=== PATIENT | female | born 1950 | race Caucasian/White ===

== ENCOUNTER 2023-04-30 12:12 | Observation (INO) ==
[2023-04-30 12:38] LABS: ABS Eosinophils 0.2 10^3/uL (0.0-0.5); ABS Lymphocytes 1.1 10^3/uL (1.0-4.8); ABS Monocytes 0.6 10^3/uL (0.0-0.9); ABS Neutrophils 4.1 10^3/uL (1.5-7.6); Eosinophil % 4.1 %; Hematocrit 38.2 % (35-45); Hemoglobin 13.1 g/dL (11.5-14.3); Lymphocyte % 17.9 %; Mean Corpuscular Hemoglobin 31.3 pg (27-33); Mean Corpuscular Hgb Conc 34.3 g/dL (31-36); Mean Corpuscular Volume 91.3 fL (80-97); Mean Platelet Volume 8.5 fL (7.5-11.2); Nucleated Red Blood Cells % 0.1 %/100WBC (0.0-0.8); Platelet Count 282 10^3/uL (150-450); Red Blood Count 4.18 10^6/uL (3.63-4.92); Red Cell Distribution Width 13.4 % (12-17)
[2023-04-30 13:08] LABS: INR 1.13 (0.83-1.13)
[2023-04-30] MEDS ORDERED: Lactated Ringers 1000 ml BAG 1,000 ML IV ONE (13:42)
[2023-04-30 13:52] LABS: Albumin 4.2 g/dL (3.2-5.2); Albumin/Globulin Ratio 1.6 (1-3); Calcium 9.3 mg/dL (8.6-10.3); Creatinine, Serum 0.72 mg/dL (0.51-0.95); Globulin 2.6 g/dL (2-4); Potassium 4.2 mmol/L (3.5-5.0); Total Bilirubin 0.8 mg/dL (0.2-1.0); Total Protein 6.8 g/dL (6.4-8.9); eGFR CKD-EPI 89.3 (>60)
[2023-04-30 13:57] LABS: High Sensitivity Troponin 1 Hr 9 pg/mL (<15)
[2023-04-30] MEDS ORDERED: Digoxin IV 0.5 MG/2 ML AMP (0.25 MG/ML) IV SLOW PU ONE (15:36)
[2023-04-30] MEDS: dilTIAZem 30 MG TAB PO ONE ×2 (15:43→15:51)
[2023-04-30] MEDS ORDERED: Digoxin IV 0.5 MG/2 ML AMP (0.25 MG/ML) ONE (16:00)
[2023-04-30] MEDS ORDERED: Lactated Ringers 1000 ml BAG 500 ML IV ONE (19:21)
[2023-05-01] MEDS ORDERED: Metoprolol Tartrate 5 mg VIAL 5 ml VIAL (1 mg/ml) IV PRN (03:32)
[2023-05-01 08:41] LABS: Creatinine, Serum 0.64 mg/dL (0.51-0.95); Magnesium 2.1 mg/dL (1.9-2.7); Potassium 4.4 mmol/L (3.5-5.0); eGFR CKD-EPI 94.4 (>60)
[2023-05-01] MEDS: CMCS:Letrozole 2.5 MG TAB (NF) PO SCH (11:49)
[2023-05-02] MEDS ORDERED: Midazolam 5 mg/5 ml VIAL 1 mg/ml 5 ml VIAL (5 mg) ONE (07:40)
[2023-05-02] MEDS ORDERED: fentaNYL 100 mcg/2 ml 50 MCG/ML VIAL ONE (07:41)
[2023-05-02] MEDS ORDERED: Flumazenil 0.5 mg/5 ml 0.1 MG/ML 5 ml VIAL ONE (07:41)
[2023-05-02] MEDS ORDERED: Naloxone 0.4 mg VIAL 0.4 mg/ml 1 ml VIAL ONE (07:41)
[2023-05-02] MEDS ORDERED: Lactated Ringers 1000 ml BAG 1,000 ML IV SCH (11:00)
[2023-05-02] MEDS: CMCS:Letrozole 2.5 MG TAB (NF) PO SCH (11:48)
[2023-05-02 15:05] VITALS: BP 112/76
== END 2023-05-02 18:00 | disposition home or self-care (01) ==
LOC: ED 12:12 → EDHOLD 05-01 00:43 → INTOOBSV 05-01 00:43 → MEDTELE 05-01 03:32
PROVIDERS: ADMIT Internal Medicine; ATTEND Internal Medicine

== ENCOUNTER 2024-04-11 14:44 | Observation (INO) ==
[2024-04-11] MEDS: Iodixanol 320 (CONTRAST) 100 ML SDV IV ONE (15:06)
[2024-04-11 15:09] LABS: ABS Eosinophils 0.2 10^3/uL (0.0-0.5); ABS Lymphocytes 1.2 10^3/uL (1.0-4.8); ABS Monocytes 0.6 10^3/uL (0.0-0.9); ABS Neutrophils 4.9 10^3/uL (1.5-7.6); Eosinophil % 2.9 %; Hematocrit 42.5 % (35-45); Hemoglobin 14.6 g/dL (11.5-14.3); Lymphocyte % 17.4 %; Mean Corpuscular Hemoglobin 31.1 pg (27-33); Mean Corpuscular Hgb Conc 34.3 g/dL (31-36); Mean Corpuscular Volume 90.5 fL (80-97); Mean Platelet Volume 8.2 fL (7.5-11.2); Nucleated Red Blood Cells % 0.1 %/100WBC (0.0-0.8); Platelet Count 285 10^3/uL (150-450); Red Cell Distribution Width 13.1 % (12-17)
[2024-04-11 15:20] LABS: Activated Partial Thrombo Time 32.7 seconds (26.0-38.0); INR 1.04 (0.85-1.14)
[2024-04-11 15:59] LABS: Albumin 4.4 g/dL (3.2-5.2); Albumin/Globulin Ratio 1.5 (1-3); Calcium 9.4 mg/dL (8.6-10.3); Creatinine, Serum 0.6 mg/dL (0.51-0.95); Direct Bilirubin 0.1 mg/dL (0.03-0.18); Globulin 2.9 g/dL (2-4); HDL Cholesterol 50.6 mg/dL; Indirect Bilirubin 0.5 mg/dL (0.3-1.0); Potassium 4.6 mmol/L (3.5-5.0); Total Bilirubin 0.6 mg/dL (0.2-1.0); Total Protein 7.3 g/dL (6.4-8.9); eGFR CKD-EPI 95.3 (>60)
[2024-04-11] MEDS ORDERED: Al Hydrox/Mg Hydrox/Simet LIQ 30 ML UDC PO PRN (16:14)
[2024-04-11] MEDS ORDERED: Sulfur Hexaflouride MICROSPHR 25 MG VIAL IV PRN (16:18)
[2024-04-11 18:41] LABS: Urine Appearance Clear; Urine Bilirubin Negative (Negative); Urine Blood Negative (Negative); Urine Color Colorless; Urine Glucose 2+ (>=150 mg/dL) (Negative); Urine Ketones Negative (Negative); Urine Nitrite Negative (Negative); Urine Protein Negative (Negative); Urine Specific Gravity 1.028 (1.002-1.030); Urine Urobilinogen Negative (Negative); Urine pH 6.5 (5.0-8.0)
[2024-04-11] MEDS ORDERED: Aspirin EC 81 mg TAB.EC (enteric coated) PO SCH (21:00)
[2024-04-11] MEDS: CMCS: Letrozole 2.5 MG TAB (NF) PO SCH (22:34)
[2024-04-12 06:09] LABS: ABS Eosinophils 0.2 10^3/uL (0.0-0.5); ABS Lymphocytes 1.8 10^3/uL (1.0-4.8); ABS Monocytes 0.7 10^3/uL (0.0-0.9); ABS Neutrophils 3.3 10^3/uL (1.5-7.6); Hematocrit 40.8 % (35-45); Hemoglobin 13.9 g/dL (11.5-14.3); Lymphocyte % 29.3 %; Mean Corpuscular Hgb Conc 34.2 g/dL (31-36); Mean Corpuscular Volume 90.7 fL (80-97); Mean Platelet Volume 8.3 fL (7.5-11.2); Platelet Count 248 10^3/uL (150-450); Red Blood Count 4.49 10^6/uL (3.63-4.92); Red Cell Distribution Width 13.4 % (12-17); White Blood Count 6.1 10^3/uL (3.8-11.8)
[2024-04-12 06:35] LABS: Calcium 9.1 mg/dL (8.6-10.3); Creatinine, Serum 0.54 mg/dL (0.51-0.95); HDL Cholesterol 47.1 mg/dL; Magnesium 2.2 mg/dL (1.9-2.7); Potassium 4.4 mmol/L (3.5-5.0); eGFR CKD-EPI 97.8 (>60)
[2024-04-12] MEDS: Aspirin EC 81 mg TAB.EC (enteric coated) PO SCH (17:04)
[2024-04-13 10:10] VITALS: BP 111/73
== END 2024-04-13 14:00 | disposition home or self-care (01) ==
LOC: EDHOLD 14:44 → ED 14:44 → MEDTELE 19:44
PROVIDERS: ADMIT Internal Medicine; ATTEND Internal Medicine